=== PATIENT | male | born 1960 | race Caucasian/White ===

== ENCOUNTER → 2021-07-03 | Outpatient (CLI) | payer MEDICARE ==
[2021-06-21 12:00] VITALS: BP 135/83
[~2021-07-03] MED LIST: AMLO-187 PO; LOSA-73 PO
--- NOTE | 2021-07-03 13:01 | CARD ---
MR#: [id number] Date of Study: 07/03/2021 Ordering Physician: FANTA DONOHUE, Referring Physician: FANTA DONOHUE, Tech: Liya Talley, [facility] APPROVED REPORT EXAM: Two-dimensional and M-mode echocardiogram with Doppler and color Doppler. Other Information Quality : FairHR: 86bpm Technically limited study due to smoking INDICATION COPD Acute OH RISK FACTORS Hypertension Hyperlipidemia Smoking 2D DIMENSIONS RVDd3.2 (2.9-3.5cm)Left Atrium(2D)3.2 (1.6-4.0cm) IVSd1.1 (0.7-1.1cm)Aortic Root(2D)3.6 (2.0-3.7cm) LVDd5.3 (3.9-5.9cm)LVOT Diameter2.1 (1.8-2.4cm) PWd1.1 (0.7-1.1cm)LVDs4.4 (2.5-4.0cm) FS (%) 16.3 %SV45.7 ml LVEF(%)34.0 (>50%) Aortic Valve AoV Peak Kamaljit.214.3cm/sAoV VTI37.8cm AO Peak GR.18.4mmHgLVOT Peak Kamaljit.129.8cm/s LVOT VTI 20.74cmAO Mean GR.9mmHg DYLAN (VMAX)1.31bt2KDD (VTI)1.92cm2 Mitral Valve MV E Ppdmfcpu06.8cm/sMV DECEL [id number] MV A Vlvsvdrk72.9cm/sMV E Mean Gr.2mmHg MV [id number]/A Ratio1.0 MVA (PHT)3.40cm2 TDI E/Lateral E'9.5E/Medial E'12.1 Pulmonary Valve PV Peak Odriyvcy13.6cm/sPV Peak Grad.3mmHg Tricuspid Valve TR P. Pwyxhclz460ln/sRAP [id number] TR Peak Gr.96rjEvESKG25zqNe Pulmonary Vein S1 Ozzdffbw30.5cm/sD2 Wsarcjvs06.0cm/s PVa tifuadis60hnub LEFT VENTRICLE The left ventricle is normal size. There is mild concentric left ventricular hypertrophy. The left ve ntricular systolic function is normal. The Ejection Fraction is 55%. There is normal LV segmental wal l motion. Transmitral Doppler flow pattern is Grade II-pseudonormal filling dynamics. RIGHT VENTRICLE The right ventricle is normal size. There is normal right ventricular wall thickness. The right ventr icular systolic function is normal. ATRIA The left atrium size is normal. The right atrium size is normal. The interatrial septum is intact wit h no evidence for an atrial septal defect or patent foramen ovale as noted on 2-D or Doppler imaging. AORTIC VALVE The aortic valve is mildly thickened. Doppler and Color Flow revealed trace aortic regurgitation. The re is no significant aortic valvular stenosis. Calculated aortic valve area is 2.25 cm2 with maximum pressure gradient of 21 mmHg and mean pressure gradient of 11 mmHg. MITRAL VALVE The mitral valve is normal in structure and function. There is no evidence of mitral valve prolapse. There is no mitral valve stenosis. Doppler and Color-flow revealed trace mitral regurgitation. TRICUSPID VALVE The tricuspid valve is normal in structure and function. Doppler and Color Flow revealed trace tricus pid regurgitation with an estimated PAP of 28 mmHg. There is no tricuspid valve stenosis. PULMONIC VALVE The pulmonic valve is not well visualized. Doppler and Color Flow revealed no pulmonic valvular regur gitation. GREAT VESSELS The aortic root is normal in size. The ascending aorta is normal in size. The IVC is normal in size a nd collapses >50% with inspiration. PERICARDIAL EFFUSION There is no evidence of significant pericardial effusion. Critical Notification Critical Value: No <Conclusion> The left ventricular systolic function is normal. The Ejection Fraction is 55%. There is normal LV segmental wall motion. Trace mitral regurgitation. Trace tricuspid regurgitation with an estimated PAP of 28 mmHg. There is no evidence of significant pericardial effusion. Signed by : Fanta Donohue, Electronically Approved : 07/03/2021 13:01:48
== END ==
LOC: ECHO 08:25
PROVIDERS: ATTEND Internal Medicine Cardiovascular Disease
DX: I35.1 Nonrheumatic aortic (valve) insufficiency (principal); I51.7 Cardiomegaly; I21.9 Acute myocardial infarction, unspecified; J44.9 Chronic obstructive pulmonary disease, unspecified
CPT/HCPCS: 93306